=== PATIENT | female | born 1935 | race Caucasian/White ===

== ENCOUNTER 2020-04-05 14:42 | Inpatient (IN) | payer MEDICARE, MEDICAID ==
[~2020-04-05] VITALS: Ht 162.6 cm; Wt 65.8 kg
--- NOTE | ~2020-04-05 | PROC ---
[address] [address] PROCEDURE REPORT Name: ANNE MARIE PENDLETON Room: [address] IN .R.#: [id number] Admission: 04/05/20 Attend Phys: Guy Leone, Discharge: Date of : 31 Report #: [id number] THIS REPORT FOR: //name// cc: James Azevedo MD, Timothy J. MD ~ THIS REPORT FOR: //name// For GI report, please see the Provation report in Perceptive 7 content. By: [id number] Records Staff MERRITT /OSEAS
[~2020-04-05 14:42] MED LIST: ACETAMINOPHEN-1 EAC1 PO; ACIDOPHILUS1 EAC4 PO; ADULT LOW DOSE81 MG PO; AMOXICILLIN500 M1 PO; APAP500 PO; ARICEPT 5 MG TAB5 MG PO; AZITHROMYCIN 2250 MG PO; BENAZEPRIL HCL20 MG PO; BENTYL 20 MG TA20 M1 PO; CARAFATE 1 GM TA1 G1 PO; CATAPRES0.2 MG PO; CIPRO500 MG PO; CIPROFLOXACIN500 M3; CIPROFLOXACIN500 M3 PO; CITRATE OF MAG296 ML PO; CLOPIDOGREL75 MG PO; COLACE100 MG PO; DULCOLAX5 MG PO; DUONEB 2.5-0.5 M3 ML INH; FIBERCON625 M1 PO; FLEXERIL PO; GABAPENTIN 100100 MG PO; GLUCOPHAGE500 MG PO; HYDROCHLOROTH12.5 M1 PO; IBUPROFEN 800800 M1 PO; KEFLEX500 MG PO; LEVAQUIN 500 M500 MG PO; LEVEMIR SQ; LEVEMIR SUBQ; LIPITOR10 MG PO; LISINOPRIL10 MG PO; MIRALAX17 GM PO; MIRALAX255 GM PO; NAMENDA 5 MG TAB5 M1 PO; NEURONTIN 300300 M1 PO; NORCO 5-325 TA1 EACH PO; NOVOLOG100 UNIT/1 SUBQ; NYSTATIN 1100000 U/M SW&SWALLOW; OMEPRAZOLE 20 M20 M1; OMEPRAZOLE20 M2 PO; ONDANSETRON HCL4 M2 PO; PRILOSEC 20 MG20 MG PO; PRINIVIL40 MG PO; PROBIOTIC1 EAC1 PO; PROTONIX40 MG PO; RANITIDINE PO; REGLAN 5 MG TAB5 MG PO; SENOKOT-S1 TA1 PO; UNICOMPLEX M TA1 TA1 PO; VITAMIN B-12500 MCG PO; ZANTAC 150MG T150 M1; ZEGERID 20 MG1 EACH PO; ZOFRAN ODT4 MG PO; ZOFRAN4 MG PO; ZOLOFT25 MG PO; ZPAK PO; glucometer
[2020-04-05 14:45] VITALS: BP 132/57
[2020-04-05 15:09] LABS: ABSOLUTE BASOPHILS 0.1 thou/uL (0.0-0.2); ABSOLUTE EOSINOPHILS 0.3 thou/uL (0.0-0.7); ABSOLUTE LYMPHOCYTES 1.3 thou/uL (0.8-5.3); ABSOLUTE MONOCYTES 0.6 thou/uL (0.0-1.2); ABSOLUTE NEUTROPHILS 7.9 thou/uL (1.6-8.1); BASOPHILS 0.6 %; EOSINOPHILS 2.6 %; LYMPHOCYTES 12.7 %; MCH 23.3 pg (26.0-34.0); MCHC 32.4 g/dL (28.0-37.0); MCV 71.8 fL (80.0-100.0); MONOCYTES 5.6 %; MPV 8.6 fl. (7.2-11.1); NUCLEATED RBCS 0 /100WBC; PLATELET COUNT* 326 thou/uL (150-400); POLYS 78.5 %; RBC 4.32 mil/uL (4.20-5.00); RDW-CV 18.9 % (10.5-14.5)
[2020-04-05] MEDS ORDERED: OMEPRAZOLE40 MG PO (15:15)
[2020-04-05 15:16] LABS: CALCIUM 8.4 mg/dL (8.5-10.1); CREATININE 1.3 mg/dL (0.6-1.3); POTASSIUM 3.6 mmol/L (3.5-5.1)
[2020-04-05 15:19] LABS: APTT 18.8 Seconds (25.0-31.3); INR 1.1; PROTIME 10.8 Seconds (9.20-11.50)
[2020-04-05 15:29] LABS: ALBUMIN 3.1 g/dL (3.4-5.0); TOTAL BILIRUBIN 0.3 mg/dL (<0.1-1.0); TOTAL PROTEIN 6.9 g/dL (6.4-8.2)
[2020-04-05 15:40] LABS: URINE BILIRUBIN NEGATIVE (Negative); URINE BLOOD TRACE (Negative); URINE CLARITY SL CLOUDY; URINE COLOR YELLOW; URINE GLUCOSE-RANDOM NEGATIVE (Negative); URINE KETONES TRACE (Negative); URINE LEUKOCYTES-REFLEX NEGATIVE (Negative); URINE NITRITE-REFLEX NEGATIVE (Negative); URINE PROTEIN 1+ (Negative); URINE UROBILINOGEN 0.2 E.U./dl (0.2-1.0)
[2020-04-05 20:12] VITALS: BP 120/65
[2020-04-05 20:25] VITALS: BP 134/54
[2020-04-06] VITALS (9 sets, daily range): BP systolic 129–175; BP diastolic 50–93
[2020-04-06 02:21] LABS: HEMATOCRIT 29.1 % (37.0-47.0); HEMOGLOBIN 9.4 gm/dL (12.0-15.0); MCH 23.1 pg (26.0-34.0); MCHC 32.2 g/dL (28.0-37.0); MCV 71.9 fL (80.0-100.0); MPV 8.4 fl. (7.2-11.1); RBC 4.06 mil/uL (4.20-5.00); RDW-CV 18.7 % (10.5-14.5); WBC 12.4 thou/uL (4.0-11.0)
[2020-04-06 02:41] LABS: CALCIUM 8.5 mg/dL (8.5-10.1); CREATININE 1.3 mg/dL (0.6-1.3); MAGNESIUM 1.4 mg/dL (1.8-2.4); POTASSIUM 3.6 mmol/L (3.5-5.1)
[2020-04-06 02:43] LABS: TROPONIN-I LEVEL 4.38 ng/mL (<0.06)
[2020-04-06 07:55] LABS: CHOLESTEROL 143 mg/dL (<200); HDL CHOLESTEROL 43 mg/dL (>40); LDL CHOLESTEROL 65 mg/dL (<100); TC:HDL 3.3 Ratio (Not establshd); TRIGLYCERIDE 175 mg/dL (<150); VLDL 35 mg/dL (<40)
[2020-04-06 07:59] LABS: SERUM ASSESSMENT Clear
[2020-04-06 10:48] LABS: CALCIUM 8.4 mg/dL (8.5-10.1); CREATININE 1.4 mg/dL (0.6-1.3); POTASSIUM 3.4 mmol/L (3.5-5.1)
--- NOTE | 2020-04-06 16:29 | 2DMMODE ---
[place] [address] 2 D/M-MODE ECHOCARDIOGRAM Name: ANNE MARIE PENDLETON Room: [address] IN .R.#: [id number] Admission: 04/05/20 Attend Phys: Guy Adhikari Discharge: Date of : 31 Date of Service: 04/06/20 1628 Report #: [id number] THIS REPORT FOR: cc: James Azevedo MD, Timothy J. MD Holkins,Job Hernandez MD [facility] ~ APPROVED REPORT Study performed: 04/06/2020 14:39:05 EXAM: Comprehensive 2D, Doppler, and color-flow Echocardiogram Patient Location: Bedside BSA: 1.80 HR: 80 bpm BP: 129/68 mmHg Other Information Study Quality: Technically Limited Technically limited study due to uncooperative patient, inability to position patient. Indications Dyspnea 2D Dimensions IVSd: 18.76 (7-11mm) LVOT Diam: 17.15 (18-24mm) LVDd: 50.37 mm PWd: 13.23 (7-11mm) Ascending Ao: 33.71 (22-36mm) LVDs: 39.72 (25-40mm) Aortic Root: 38.89 mm Volumes Left Atrial Volume (Systole) LA ESV Index: 47.70 mL/m2 Aortic Valve AoV Peak Luis Miguel.: 1.29 m/s AO Peak Gr.: 6.67 mmHg LVOT Max P.52 mmHg AO Mean Gr.: 3.74 mmHg LVOT Mean P.91 mmHg LVOT Max V: 0.62 m/s AO V2 VTI: 27.19 cm LVOT Mean V: 0.45 m/s PRECIOUS (VTI): 1.33 cm2 LVOT V1 VTI: 15.70 [place] [address] 2 D/M-MODE ECHOCARDIOGRAM Name: ANNE MARIE PENDLETON Room: [address] IN [facility]#: [id number] Admission: 04/05/20 Attend Phys: Guy Adhikari Discharge: Date of : 31 Date of Service: 04/06/20 1628 Report #: [id number] Mitral Valve E/A Ratio: 0.84 MV Decel. Time: 165.76 ms MV E Max Luis Miguel.: 0.86 m/s MV PHT: 48.07 ms MVA (PHT): 4.58 cm2 TDI E/Lateral E': 17.20 E/Medial E': 21.50 Medial E' Luis Miguel.: 0.04 m/s Lateral E' Luis Miguel.: 0.05 m/s Pulmonary Valve PV Peak Luis Miguel.: 0.86 m/s PV Peak Gr.: 2.93 mmHg Tricuspid Valve RAP Estimate: 5.00 mmHg TR Peak Gr.: 47.74 mmHg RVSP: 52.74 mmHg PA Pressure: 52.74 mmHg Left Ventricle The left ventricle is normal size. There is distal septal and apical hypokinesis noted Mild concentric left ventricular hypertrophy. Left ventricular systolic function is mildly decreased. LVEF is 45%. Grade I - abnormal relaxation pattern. Right Ventricle The right ventricle is normal size. The right ventricular systolic function is normal. Atria Left atrium is moderately dilated. Interatrial septum not well visualized. Right atrium is dilated. Aortic Valve The Aortic valve is sclerotic. Mild aortic regurgitation. There is no aortic valvular stenosis. Mitral Valve There is mitral annular calcification. Trace mitral regurgitation. No evidence of mitral valve stenosis. Tricuspid Valve The tricuspid valve is normal in structure. Mild tricuspid regurgitation. [place] [address] 2 D/M-MODE ECHOCARDIOGRAM Name: ANNE MARIE PENDLETON Room: [address]#: [id number] Admission: 04/05/20 Attend Phys: Guy Adhikari Discharge: Date of : 31 Date of Service: 04/06/20 1628 Report #: [id number] Pulmonic Valve The pulmonary valve is normal in structure. Moderate pulmonic regurgitation. Great Vessels The aortic root is normal in size. Aortic arch is not well visualized. IVC is not well visualized. Pericardium Trace pericardial effusion. <Conclusion> The left ventricle is normal size. Mild concentric left ventricular hypertrophy. Left ventricular systolic function is mildly decreased. LVEF is 45%. Grade I - abnormal relaxation pattern. The right ventricle is normal size. Left atrium is moderately dilated. The Aortic valve is sclerotic. Mild aortic regurgitation. There is no aortic valvular stenosis. There is mitral annular calcification. Trace mitral regurgitation. No evidence of mitral valve stenosis. The tricuspid valve is normal in structure. Mild tricuspid regurgitation. Moderate pulmonary hypertension. Trace pericardial effusion. There is distal septal and apical hypokinesis noted <ELECTRONICALLY SIGNED> By: Job Elliott MD, FACC 04/06/20 1628 1628 Job Elliott MD, FACC /INF
--- NOTE | 2020-04-06 17:07 | EKG ---
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 04/06/20 1707 1452 1452 Job Elliott MD, [facility] /EPI
[2020-04-07 00:43] VITALS: BP 174/69
[2020-04-07 04:32] VITALS: BP 172/77
[2020-04-07 04:56] LABS: HEMATOCRIT 31.5 % (37.0-47.0); HEMOGLOBIN 10.1 gm/dL (12.0-15.0); MCH 23.2 pg (26.0-34.0); MCHC 32.2 g/dL (28.0-37.0); MCV 72.1 fL (80.0-100.0); MPV 9.2 fl. (7.2-11.1); RBC 4.37 mil/uL (4.20-5.00); RDW-CV 18.7 % (10.5-14.5); WBC 13.3 thou/uL (4.0-11.0)
[2020-04-07 05:17] LABS: CALCIUM 8.7 mg/dL (8.5-10.1); CREATININE 1.4 mg/dL (0.6-1.3); MAGNESIUM 1.6 mg/dL (1.8-2.4); POTASSIUM 3.4 mmol/L (3.5-5.1)
[2020-04-07 12:00] VITALS: BP 159/74
[2020-04-07 14:13] LABS: CALCIUM 8.8 mg/dL (8.5-10.1); CREATININE 1.6 mg/dL (0.6-1.3)
[2020-04-07 14:14] LABS: POTASSIUM 4.7 mmol/L (3.5-5.1)
--- NOTE | 2020-04-07 14:47 | CON ---
[address] [address] CONSULTATION Name: ANNE MARIE PENDLETON Room: [address] IN .R.#: [id number] Admission: 04/05/20 Attend Phys: Guy Leone, Discharge: Date of : 31 Report #: [id number] THIS REPORT FOR: //name// cc: James Azevedo MD, Timothy J. MD ~ THIS REPORT FOR: //name// CC: Guy Azevedo DATE OF SERVICE: 04/07/2020 REQUESTING PHYSICIAN: Guy Leone MD INDICATION FOR CONSULTATION: Pulmonary infiltrates, possible pneumonia. HISTORY OF PRESENT ILLNESS: The patient is an 84-year-old female. She only speaks Belgian, which limits communication. The patient also has had altered mental status and appears likely that she has dementia. All of this limits communication. Apparently, the patient is now admitted initially on 04/05/2020. She does not have any known history of smoking. The patient has had hypertension, but does not have any other history of cardiac or respiratory disease. Presentation was with altered mental status. The patient also was having abdominal pain and had had vomiting as well as diarrhea. According to her family, has had some coughing at her baseline. There is no reported increase in this coughing. There is no reported increase in shortness of breath. No reported increase or new upper respiratory complaints, no swelling of lower extremities and no calf pain. The patient was evaluated by obtaining troponin I levels. Troponin I initially was 1.0 and subsequently climbed up to 4.34, consistent with a non-ST segment myocardial infarction. The patient also had an echocardiogram performed, which shows a depression in left ventricular ejection fraction to 45, which is new, and is discussed below in more detail. The patient's initial chest x-ray shows some increase in reticular markings, which will be consistent with either mild increase in pulmonary vascular congestion or interstitial infiltrates. The patient in the setting of a myocardial infarction was suspected of having fluid overload and that she has been diuresed since then. Her initial creatinine was 1.3, which has now increased to 1.4. The patient's baseline creatinine from 2017 is 1.0. Despite diuresis, the patient's chest x-ray now in fact looks worse. The patient still remains on room air. She is lethargic, drowsy, but I was able to fully arouse her and speak to her through a family member who acted as a pastry finisher. She has also been concern regarding aspiration. The patient's nurse does report that she has had difficulty swallowing and has been having cough with taking liquids. The patient still is maintaining [place] [address] CONSULTATION Name: ANNE MARIE EPNDLETON Room: [address] IN ..#: [id number] Admission: 04/05/20 Attend Phys: Guy Leone, Discharge: Date of : 33 Report #: [id number] the mid 90s on room air and she is afebrile. The patient is unable to provide a further history or review of systems. PAST MEDICAL HISTORY: Diabetes, hypertension, gastroesophageal reflux disease, meningioma, UTI, orthostatic hypotension, Alzheimer disease, diverticulosis, insomnia. The patient's echocardiogram previously in 2017 showed a normal left ventricular ejection fraction of 55-60% with a pulmonary artery systolic of 41. The patient has now had a new echocardiogram performed, which shows a reduction in the ventricular ejection fraction to 45%. The pulmonary artery systolic pressure is now also elevated to 52. SOCIAL HISTORY: No known history of smoking, ethanol abuse or drug abuse. The patient only speaks Belgian. ALLERGIES: No known drug allergies. CURRENT MEDICATIONS: List in Get[employer] reviewed. HOME MEDICATIONS: List in [employer] reviewed. FAMILY HISTORY: There is no pertinent family history known at this time. PHYSICAL EXAMINATION: GENERAL: The patient was drowsy, but I was able to fully arouse her. She still did appear to be somewhat lethargic. I was able to communicate with her through a family member. VITAL SIGNS: She has a pulse of 80 and a blood pressure of 159/74, she still is saturating in the mid 90s, she is on room air, she is afebrile with a temperature of 36.4. HEENT: Head is normocephalic and atraumatic. Pupils are equal and reactive. There is no throat erythema. There is no thrush in her throat. Her airway does appear to be narrow. NECK: Does not show raised JVP, asymmetry, mass or lymph nodes. CHEST: Symmetrical expansion on inspection and palpation. On auscultation, breath sounds are bilaterally equal, but decreased. I do not hear any added sounds. HEART: Regular. There is no murmur. ABDOMEN: Soft and nontender. EXTREMITIES: Lower extremities show no edema. There is no calf tenderness. SKIN: Dry and intact. NEUROLOGICAL: Mental status as described above. She did move all extremities bilaterally equally and spontaneously with no focal deficit identified. LABORATORY DATA: The patient's chest x-rays are as described above. CT of the abdomen and pelvis and CT head as well as x-ray abdomen also reviewed. Lab work including CBC and chemistries performed several times in [facility] reviewed. [address] [place] [address] CONSULTATION Name: ANNE MARIE PENDLETON Room: [address] IN M.R.#: [id number] Admission: 04/05/20 Attend Phys: Guy Leone, Discharge: Date of : 33 Report #: [id number] Electrolyte abnormalities are also noted. Hyperglycemia is noted. ASSESSMENT AND PLAN: 1. Interstitial infiltrates/aspiration. The patient's chest x-ray is reviewed and compared with the patient's previous chest x-ray performed on admission, despite the fact that the patient has been diuresed. There is a worsening in the chest x-ray. Findings seen on the chest x-ray can be secondary to increase in pulmonary vascular congestion. They could also be secondary to atypical or viral pneumonia. It appears likely based on the patient's previous chest x-ray that she may have some interstitial lung disease as well. At this time, I recommended that the patient be made n.p.o. pending evaluation by speech. If allowed orally by speech, I recommend maintaining strict aspiration precautions. Amongst several other etiologies, COVID-19 can also lead to this picture and therefore, I did order further testing for COVID-19. I requested the patient to be in isolation until the same is completed. Also pending further evaluation, I would treat her with broad-spectrum antibiotics. If she improves, we will plan to cut down the antibiotics later. I switched her over to Zosyn + Doxycyline. We will also treat her with a corticosteroid and follow response. 2. Non-ST segment myocardial infarction. The Cardiology service is on the case. I will mostly defer to them. Agree with keeping the patient on the dry side as long as her creatinine holds, we will need to follow creatinine closely. I recommend following potassium and magnesium closely and replacing as indicated. 3. Hyperglycemia/history of diabetes. I ordered an insulin sliding scale as I am ordering some steroids to avoid a further rise in blood glucoses, will defer followup to the primary service. 4. Gastroesophageal reflux disease/nausea and vomiting. The GI service has been consulted. The patient is on a proton pump inhibitor. 5. History of meningioma. The Neurology service is also on the case. Thanks for this consultation. <ELECTRONICALLY SIGNED> By: Souleymane Valentino MD 04/07/20 1447 1329 [id number] Valentino MD /nt
[2020-04-07 16:00] VITALS: BP 104/71
[2020-04-07 21:00] VITALS: BP 120/90
[2020-04-07 23:08] VITALS: BP 130/84
[2020-04-08 03:45] VITALS: BP 136/67
[2020-04-08 04:58] LABS: HEMATOCRIT 31.2 % (37.0-47.0); HEMOGLOBIN 9.9 gm/dL (12.0-15.0); MCHC 31.9 g/dL (28.0-37.0); MCV 72.1 fL (80.0-100.0); MPV 8.7 fl. (7.2-11.1); NUCLEATED RBCS 0 /100WBC; PLATELET COUNT* 431 thou/uL (150-400); RBC 4.33 mil/uL (4.20-5.00); RDW-CV 19.5 % (10.5-14.5); WBC 19.9 thou/uL (4.0-11.0)
[2020-04-08 05:13] LABS: ALBUMIN 3.2 g/dL (3.4-5.0); CALCIUM 9.1 mg/dL (8.5-10.1); CREATININE 1.8 mg/dL (0.6-1.3); MAGNESIUM 2.3 mg/dL (1.8-2.4); POTASSIUM 4.9 mmol/L (3.5-5.1); TOTAL BILIRUBIN 0.5 mg/dL (<0.1-1.0); TOTAL PROTEIN 7.3 g/dL (6.4-8.2)
[2020-04-08 06:47] LABS: ABSOLUTE LYMPHOCYTES 1.2 thou/uL (0.8-5.3); ABSOLUTE MONOCYTES 1.8 thou/uL (0.0-1.2); ABSOLUTE NEUTROPHILS 16.9 thou/uL (1.6-8.1)
[2020-04-08 06:48] LABS: HYPOCHROMASIA 1+; PLATELET ESTIMATE ADEQUATE
[2020-04-08 06:49] LABS: MICROCYTES 1+; TOXIC GRANULATION 2+
[2020-04-08 06:50] LABS: OVALOCYTES 1+
[2020-04-08 08:00] VITALS: BP 157/83
[2020-04-08 12:00] VITALS: BP 100/56
[2020-04-08 16:00] VITALS: BP 168/89
[2020-04-08 20:00] VITALS: BP 167/79
[2020-04-08 23:40] VITALS: BP 145/67
[2020-04-09 04:00] VITALS: BP 151/68
[2020-04-09 05:12] LABS: ABSOLUTE LYMPHOCYTES 1.2 thou/uL (0.8-5.3); ABSOLUTE MONOCYTES 1.4 thou/uL (0.0-1.2); ABSOLUTE NEUTROPHILS 13.1 thou/uL (1.6-8.1); BASOPHILS 0.3 %; HEMOGLOBIN 8.9 gm/dL (12.0-15.0); LYMPHOCYTES 7.5 %; MCH 23.1 pg (26.0-34.0); MCHC 31.9 g/dL (28.0-37.0); MCV 72.3 fL (80.0-100.0); MPV 9.2 fl. (7.2-11.1); NUCLEATED RBCS 1 /100WBC; PLATELET COUNT* 370 thou/uL (150-400); POLYS 83.2 %; RBC 3.87 mil/uL (4.20-5.00); RDW-CV 19.8 % (10.5-14.5); WBC 15.7 thou/uL (4.0-11.0)
[2020-04-09 05:43] LABS: ALBUMIN 2.8 g/dL (3.4-5.0); CALCIUM 8.7 mg/dL (8.5-10.1); CREATININE 2.2 mg/dL (0.6-1.3); MAGNESIUM 2.2 mg/dL (1.8-2.4); POTASSIUM 4.6 mmol/L (3.5-5.1); TOTAL BILIRUBIN 0.6 mg/dL (<0.1-1.0); TOTAL PROTEIN 6.6 g/dL (6.4-8.2)
[2020-04-09 08:00] VITALS: BP 144/66
[2020-04-09 12:00] VITALS: BP 154/70
[2020-04-09 16:00] VITALS: BP 152/78
[2020-04-09 20:00] VITALS: BP 137/66
[2020-04-10] VITALS: BP 142/83
[2020-04-10 04:00] VITALS: BP 144/59
[2020-04-10 04:57] LABS: ABSOLUTE LYMPHOCYTES 1.4 thou/uL (0.8-5.3); ABSOLUTE MONOCYTES 1.2 thou/uL (0.0-1.2); ABSOLUTE NEUTROPHILS 8.5 thou/uL (1.6-8.1); BASOPHILS 0.1 %; HEMATOCRIT 25.7 % (37.0-47.0); HEMOGLOBIN 8.3 gm/dL (12.0-15.0); LYMPHOCYTES 12.7 %; MCH 23.5 pg (26.0-34.0); MCHC 32.5 g/dL (28.0-37.0); MCV 72.3 fL (80.0-100.0); MONOCYTES 10.7 %; MPV 9.1 fl. (7.2-11.1); NUCLEATED RBCS 1 /100WBC; PLATELET COUNT* 330 thou/uL (150-400); POLYS 76.5 %; RBC 3.55 mil/uL (4.20-5.00); RDW-CV 19.8 % (10.5-14.5); WBC 11.1 thou/uL (4.0-11.0)
[2020-04-10 05:11] LABS: PREALBUMIN 13.3 mg/dL (18.0-35.7)
[2020-04-10 05:16] LABS: ALBUMIN 2.7 g/dL (3.4-5.0); CALCIUM 8.2 mg/dL (8.5-10.1); CREATININE 2.1 mg/dL (0.6-1.3); POTASSIUM 4.1 mmol/L (3.5-5.1); TOTAL BILIRUBIN 0.6 mg/dL (<0.1-1.0); TOTAL PROTEIN 6.2 g/dL (6.4-8.2)
[2020-04-10 05:41] LABS: % SATURATION 6 % (20-39); IRON 16 ug/dL (50-175)
[2020-04-10 06:35] LABS: ESR (SEDRATE) 25 mm/hr (0-30)
[2020-04-10 08:00] VITALS: BP 151/72
[2020-04-10 12:00] VITALS: BP 163/68
[2020-04-10 16:00] VITALS: BP 126/66
[2020-04-10 20:20] VITALS: BP 151/71
[2020-04-11] VITALS: BP 137/90
[2020-04-11 04:00] VITALS: BP 143/57
[2020-04-11 05:12] LABS: ABSOLUTE LYMPHOCYTES 1.7 thou/uL (0.8-5.3); ABSOLUTE MONOCYTES 1.2 thou/uL (0.0-1.2); ABSOLUTE NEUTROPHILS 9.1 thou/uL (1.6-8.1); BASOPHILS 0.3 %; EOSINOPHILS 0.1 %; HEMATOCRIT 26.4 % (37.0-47.0); HEMOGLOBIN 8.6 gm/dL (12.0-15.0); LYMPHOCYTES 14.3 %; MCH 23.4 pg (26.0-34.0); MCHC 32.4 g/dL (28.0-37.0); MCV 72.3 fL (80.0-100.0); MONOCYTES 9.7 %; NUCLEATED RBCS 1 /100WBC; PLATELET COUNT* 330 thou/uL (150-400); POLYS 75.6 %; RBC 3.66 mil/uL (4.20-5.00); WBC 12.1 thou/uL (4.0-11.0)
[2020-04-11 05:23] LABS: CALCIUM 8.2 mg/dL (8.5-10.1); CREATININE 1.8 mg/dL (0.6-1.3); POTASSIUM 3.8 mmol/L (3.5-5.1)
[2020-04-11 09:00] VITALS: BP 156/69
[2020-04-11 12:37] VITALS: BP 149/59
[2020-04-11 16:58] VITALS: BP 174/91
[2020-04-11 20:00] VITALS: BP 165/80
[2020-04-12] VITALS (7 sets, daily range): BP systolic 126–173; BP diastolic 66–102
[2020-04-12 05:49] LABS: ABSOLUTE LYMPHOCYTES 1.4 thou/uL (0.8-5.3); ABSOLUTE NEUTROPHILS 10.4 thou/uL (1.6-8.1); BASOPHILS 0.2 %; HEMATOCRIT 25.4 % (37.0-47.0); HEMOGLOBIN 8.4 gm/dL (12.0-15.0); MCH 23.9 pg (26.0-34.0); MCV 72.4 fL (80.0-100.0); MONOCYTES 7.7 %; MPV 8.6 fl. (7.2-11.1); NUCLEATED RBCS 1 /100WBC; PLATELET COUNT* 317 thou/uL (150-400); POLYS 81.1 %; RBC 3.51 mil/uL (4.20-5.00); RDW-CV 20.1 % (10.5-14.5); WBC 12.8 thou/uL (4.0-11.0)
[2020-04-12 06:04] LABS: ALBUMIN 2.5 g/dL (3.4-5.0); CALCIUM 8.1 mg/dL (8.5-10.1); CREATININE 1.5 mg/dL (0.6-1.3); MAGNESIUM 1.8 mg/dL (1.8-2.4); POTASSIUM 3.6 mmol/L (3.5-5.1); TOTAL BILIRUBIN 0.8 mg/dL (<0.1-1.0); TOTAL PROTEIN 5.9 g/dL (6.4-8.2)
[2020-04-12 08:23] LABS: ANISOCYTOSIS 2+
[2020-04-12 08:24] LABS: HYPOCHROMASIA 1+; MICROCYTES 1+
[2020-04-12 08:43] LABS: PLATELET ESTIMATE ADEQUATE
[2020-04-12 11:39] LABS: INR 1.3; PROTIME 13.1 Seconds (9.20-11.50)
[2020-04-12 16:07] LABS: CALCIUM 8.3 mg/dL (8.5-10.1); CREATININE 1.6 mg/dL (0.6-1.3); POTASSIUM 3.9 mmol/L (3.5-5.1)
[2020-04-13 00:48] VITALS: BP 158/65
[2020-04-13 04:00] VITALS: BP 168/75
[2020-04-13 05:04] LABS: ABSOLUTE MONOCYTES 1.4 thou/uL (0.0-1.2); ABSOLUTE NEUTROPHILS 12.9 thou/uL (1.6-8.1); BASOPHILS 0.3 %; HEMATOCRIT 25.6 % (37.0-47.0); HEMOGLOBIN 8.3 gm/dL (12.0-15.0); LYMPHOCYTES 12.1 %; MCH 23.2 pg (26.0-34.0); MCHC 32.6 g/dL (28.0-37.0); MCV 71.2 fL (80.0-100.0); MONOCYTES 8.5 %; MPV 9.2 fl. (7.2-11.1); NUCLEATED RBCS 1 /100WBC; PLATELET COUNT* 324 thou/uL (150-400); POLYS 79.1 %; RDW-CV 19.5 % (10.5-14.5); WBC 16.3 thou/uL (4.0-11.0)
[2020-04-13 05:09] LABS: CALCIUM 7.9 mg/dL (8.5-10.1); CREATININE 1.5 mg/dL (0.6-1.3); POTASSIUM 3.5 mmol/L (3.5-5.1)
[2020-04-13 08:00] VITALS: BP 163/71
--- NOTE | 2020-04-13 09:54 | CON ---
[address] [address] CONSULTATION Name: ANNE MARIE PENDLETON Room: [address] IN [facility].#: [id number] Admission: 04/05/20 Attend Phys: Guy Leone, Discharge: Date of : 33 Report #: [id number] THIS REPORT FOR: //name// cc: James Azevedo MD, Timothy J. MD ~ THIS REPORT FOR: //name// CC: Guy Azevedo DATE OF SERVICE: 04/09/2020 NEPHROLOGY CONSULTATION CONSULTING PHYSICIAN: Gyu Leone MD REASON FOR ADMISSION: Altered mental status and diarrhea and vomiting for 1 day. REASON FOR NEPHROLOGY CONSULTATION: Acute kidney injury on possibly chronic kidney disease. HISTORY OF PRESENT ILLNESS: This is an 84-year-old female who was brought in because of altered mental status. She apparently does have a history of dementia. She also had nausea and vomiting for 1 day prior to coming to the hospital along with possibly some diarrhea. When she was initially admitted, she was treated for chest x-ray findings of ground-glass opacities bilaterally with Lasix. Her lisinopril was also discontinued. It was stopped on 04/07. She normally takes lisinopril, hydrochlorothiazide at home and I am not sure if she takes any NSAIDs at home. She also was found to have a meningioma on her CT head. Neurology evaluated her for that. Her ejection fraction was found to be 45% with grade 1 diastolic dysfunction with moderate pulmonary hypertension. Cardiology also evaluated her for this and for possible non-STEMI, which they called a type 2 non-STEMI, but the troponin went up from 1.01 to 4.38, but they recommended only medical intervention. This is why Nephrology was consulted, was because her creatinine was 1.3 when she admitted on 04/05, went up to 1.4, 1.6 and then 1.8 and 2.2 today. I started her on IV fluids yesterday because she was not getting any and she has not been eating and drinking. She was not very talkative this morning. She is also getting antibiotics for possible pneumonia on the left side. She also has a Aguero catheter because she was retaining 400 mL of urine yesterday on her bladder scan. ALLERGIES: No known allergies. REVIEW OF SYSTEMS: As mentioned [place] [address] CONSULTATION Name: ANNE MARIE PENDLETON Room: [address] IN [facility]#: [id number] Admission: 04/05/20 Attend Phys: Guy Leone, Discharge: Date of : 33 Report #: [id number] REVIEW OF SYSTEMS: Could not be done because she was not very verbal this morning. HOME MEDICATIONS: Include Plavix, hydrochlorothiazide, clonidine, lisinopril, gabapentin, cyanocobalamin, atorvastatin, multivitamins, memantine, omeprazole, metformin, sertraline, docusate, polyethylene glycol, acetaminophen, insulin detemir, calcium polycarbophil. PAST MEDICAL AND SURGICAL HISTORY: Includes hypertension, diabetes, sinusitis, meningioma, GERD, UTI. Also, has hypertension, Alzheimer's, diverticulosis, insomnia. Also, looks like chronic kidney disease, stage 3 with baseline creatinine possibly around 1.3. SOCIAL HISTORY: She lives at home. Does not smoke or take alcohol or use illicit drugs. PHYSICAL EXAMINATION: VITAL SIGNS: Blood pressure is 151/68, respiratory rate is 18, pulse rate is 82, temperature 36.7 and pulse ox 98%. She is on room air. GENERAL: She was awake and alert, not verbal to me at least. HEAD AND EYES: Atraumatic and normocephalic. Conjunctivae normal. EARS, NOSE, AND THROAT: Normal ears and nose. Mucous membranes seem to be dry. NECK: No JVD. CHEST: Bilaterally clear to auscultation anteriorly. No crackles. CARDIOVASCULAR: S1, S2 normal. No murmurs. ABDOMEN: Soft, nondistended, nontender. EXTREMITIES: Lower extremities, there is no lower extremity edema. SKIN: Warm and dry. NEUROLOGIC: She is moving all her extremities. PSYCHIATRIC: Difficult to assess. LABORATORY DATA: WBC 15.7, hemoglobin is 8.9, platelet count is 370. Sodium is 147; potassium is 4.6; BUN 45; creatinine is 2.2, up from 1.8. Troponin was 4.38, up from 1.01. Other labs were reviewed. IMAGING: Renal ultrasound and other imaging studies were reviewed. ASSESSMENT: 1. Acute kidney injury on chronic kidney disease, stage 3B with baseline creatinine around 1.3. Admission creatinine 1.3, but creatinine has gone up to 2.2. Acute kidney injury is in the setting of lisinopril and Lasix use and intravascular volume depletion, mild hypotension and retention of urine. Her UA just showed 1+ protein, trace ketones and blood. Renal ultrasound showed mildly high normal renal echogenicity and left renal cyst, but no hydronephrosis. 2. Retention of urine. Aguero catheter has been placed. 3. Acute respiratory failure. Aspiration cannot be ruled out and she has [address] [place] [place] [address] CONSULTATION Name: ANNE MARIE PENDLETON Room: [address] IN [facility].#: [id number] Admission: 04/05/20 Attend Phys: Guy Leone, Discharge: Date of : 33 Report #: [id number] pneumonia on the left side, which has been treated for as per primary team. 4. Hypertension. Blood pressure has been running marginally low at times. 5. Normal CPK of 61. 6. Type 2 gwt-EA-zgfjoayef myocardial infarction. Cardiology signed off on her. They believe this should be just treated medically. 7. Alzheimer dementia. 8. Chronic systolic congestive heart failure, ejection fraction 45% with grade 1 diastolic dysfunction, moderate pulmonary hypertension. 9. Anemia. 10. Diabetes type 2, diabetic neuropathy. Primary team is treating. 11. Depression. PLAN: 1. Aguero catheter has been placed for retention of urine. 2. Continue IV fluid support, will increase to half normal saline to 100 mL an hour. 3. Zosyn adjusted to her kidney function. 4. Morphine should be avoided, especially if her kidney function keeps declining. 5. CT finding of meningioma reviewed. Neurology evaluated her for that. 6. Try to avoid hypotension and avoid nephrotoxic agents. 7. Continue to keep lisinopril/hydrochlorothiazide on hold. 3. Strict I's and O's. Thank you for this consultation. We will continue to follow with you. Discussed with the patient's nurse in detail. <ELECTRONICALLY SIGNED> By: Millicent Bell MD 04/13/20 0954 0749 [id number] pedro Fernández
[2020-04-13 17:07] LABS: ANA INTERPRETATION Negative (())
[2020-04-13 19:24] VITALS: BP 181/80
[2020-04-13 20:00] VITALS: BP 143/83
[2020-04-14 00:49] VITALS: BP 162/66
[2020-04-14 04:10] VITALS: BP 165/64
[2020-04-14 05:07] LABS: GLYCOHEMOGLOBIN (HGB A1C) 6.9 % (4.8-5.6)
[2020-04-14 06:04] LABS: HEMOGLOBIN 8.5 gm/dL (12.0-15.0); WBC 16.4 thou/uL (4.0-11.0)
[2020-04-14 06:07] LABS: ABSOLUTE LYMPHOCYTES 1.7 thou/uL (0.8-5.3); ABSOLUTE MONOCYTES 1.4 thou/uL (0.0-1.2); ABSOLUTE NEUTROPHILS 13.3 thou/uL (1.6-8.1); BASOPHILS 0.1 %; EOSINOPHILS 0.1 %; HEMATOCRIT 26.1 % (37.0-47.0); LYMPHOCYTES 10.2 %; MCH 23.3 pg (26.0-34.0); MCHC 32.4 g/dL (28.0-37.0); MCV 71.7 fL (80.0-100.0); MONOCYTES 8.4 %; NUCLEATED RBCS 1 /100WBC; PLATELET COUNT* 290 thou/uL (150-400); POLYS 81.2 %; RBC 3.64 mil/uL (4.20-5.00); RDW-CV 20.1 % (10.5-14.5)
[2020-04-14 06:33] LABS: ALBUMIN 2.1 g/dL (3.4-5.0); CREATININE 1.4 mg/dL (0.6-1.3); MAGNESIUM 1.7 mg/dL (1.8-2.4); POTASSIUM 3.3 mmol/L (3.5-5.1); TOTAL BILIRUBIN 0.8 mg/dL (<0.1-1.0); TOTAL PROTEIN 5.1 g/dL (6.4-8.2)
[2020-04-14 08:00] VITALS: BP 162/62
[2020-04-14 12:24] LABS: CALCIUM 8.2 mg/dL (8.5-10.1); CREATININE 1.3 mg/dL (0.6-1.3)
[2020-04-14 12:26] LABS: POTASSIUM 2.9 mmol/L (3.5-5.1)
[2020-04-14 18:00] VITALS: BP 182/68
[2020-04-14 20:00] VITALS: BP 176/87
[2020-04-14 21:23] LABS: MAGNESIUM 2.1 mg/dL (1.8-2.4); POTASSIUM 3.7 mmol/L (3.5-5.1)
[2020-04-15] VITALS: BP 160/56
[2020-04-15 04:00] VITALS: BP 168/69
[2020-04-15 05:21] LABS: HEMATOCRIT 25.9 % (37.0-47.0); HEMOGLOBIN 8.4 gm/dL (12.0-15.0); MCH 23.4 pg (26.0-34.0); MCHC 32.5 g/dL (28.0-37.0); MCV 71.8 fL (80.0-100.0); MPV 8.9 fl. (7.2-11.1); NUCLEATED RBCS 1 /100WBC; PLATELET COUNT* 233 thou/uL (150-400); RBC 3.61 mil/uL (4.20-5.00); RDW-CV 20.4 % (10.5-14.5); WBC 13.6 thou/uL (4.0-11.0)
[2020-04-15 05:46] LABS: CALCIUM 8.2 mg/dL (8.5-10.1); CREATININE 1.2 mg/dL (0.6-1.3); POTASSIUM 3.3 mmol/L (3.5-5.1); TOTAL BILIRUBIN 0.7 mg/dL (<0.1-1.0); TOTAL PROTEIN 5.3 g/dL (6.4-8.2)
[2020-04-15 06:34] LABS: ABSOLUTE EOSINOPHILS 0.3 thou/uL (0.0-0.7); ABSOLUTE LYMPHOCYTES 2.3 thou/uL (0.8-5.3); ABSOLUTE MONOCYTES 1.4 thou/uL (0.0-1.2); ABSOLUTE NEUTROPHILS 9.7 thou/uL (1.6-8.1)
[2020-04-15 06:36] LABS: MICROCYTES 3+; OVALOCYTES 2+; PLATELET ESTIMATE ADEQUATE; SCHISTOCYTES 1+
[2020-04-15 06:37] LABS: HYPOCHROMASIA 2+; POLYCHROMASIA 1+
--- NOTE | 2020-04-15 07:38 | CON ---
[address] [address] CONSULTATION Name: ANNE MARIE PENDLETON Room: [address] IN .R.#: [id number] Admission: 04/05/20 Attend Phys: Guy Leone, Discharge: Date of : 31 Report #: [id number] THIS REPORT FOR: //name// cc: James Azevedo MD, Timothy J. MD ~ THIS REPORT FOR: //name// CC: Guy Azevedo MD DICTATED BY: Kylie Hernandez [facility] DATE OF SERVICE: 04/11/2020 PRIMARY CARE PHYSICIAN: James Azevedo MD Please note at the time of this dictation, the patient was seen and physically examined by myself. HISTORY OF PRESENT ILLNESS: This is an 84-year-old female who was brought into the Emergency Room with altered mental status by her daughter whom she lives with family. She states her mother has been mentally declining over the past several years and remembering things. She brought her in because she was having some abdominal pain and having some nausea and vomiting. She states that the vomiting was more just regular vomit, but no bright red blood or coffee-ground emesis. Initially, when she was brought up, she did not have any cardiac history. She had an elevated troponin. Daughter states that she has not had any heart history in the past except that she has had an enlarged heart. She is doing relatively well. She does have a little bit of epigastric discomfort upon palpation at the bedside. Again, the patient speaks no Kyrgyz and having to go through her grandson and her mother was at the bedside and does not speak very good Kyrgyz either. ALLERGIES: No known drug allergies. MEDICATIONS: From home have been Plavix, hydrochlorothiazide, clonidine, lisinopril, Neurontin, vitamin B12. PAST MEDICAL HISTORY: Hypertension, diabetes, meningioma, acid reflux, UTI. She has had problems with orthostatic hypotension, diverticulosis, insomnia and Alzheimer's. PAST SURGICAL HISTORY: Negative. SOCIAL HISTORY: Lives with her daughter, does [place] [address] CONSULTATION Name: ANNE MARIE PENDLETON Room: [address] IN [facility]#: [id number] Admission: 04/05/20 Attend Phys: Guy Leone, Discharge: Date of : 33 Report #: [id number] any alcohol, tobacco or illegal drug use. FAMILY HISTORY: Negative for any GI or female cancers. REVIEW OF SYSTEMS: Twelve-point review of systems is essentially negative except what is mentioned in the HPI. PHYSICAL EXAMINATION: VITAL SIGNS: Temperature 36.4, pulse 71, respirations 22, blood pressure 143/97. HEART: Regular rate and rhythm. LUNGS: Clear. ABDOMEN: Soft, positive bowel sounds in all 4 quadrants with some epigastric tenderness noted to palpation. LABORATORY DATA: Hemoglobin is 8.6, she came in at 10. White count is up at 12.1. Platelets 330,000. GFR is 27. BUN is 48, it has been elevating. CT showed hiatal hernia and diverticula, otherwise negative. IMPRESSION: 1. Nausea and vomiting, resolved. 2. Abdominal pain, epigastric. 3. Anemia. 4. Chronic kidney disease. 5. Anticoagulant therapy history. 6. Heart issues. 7. Dementia. 8. Language barrier, significant with the patient. PLAN: 1. EGD tomorrow. 2. We will need to hold Plavix, aspirin and heparin, but we will check with Cardiology for clearance. 3. Further recommendations to be made once the procedure has been performed. Thank you for allowing us to participate in this patient's care. Please do not hesitate to call with any questions in regard to this consult. <ELECTRONICALLY SIGNED> By: Kayode Yates DO 04/15/20 0738 [id number] Yates DO /nt
[2020-04-15 08:00] VITALS: BP 175/76
[2020-04-15 13:21] VITALS: BP 141/69
[2020-04-15 13:52] VITALS: BP 141/69
[2020-04-15 14:07] LABS: ANTI-DNA SCREEN <1 IU/mL (0-9); ANTI-RNP <0.2 AI (0.0-0.9)
[2020-04-15 14:18] LABS: CALCIUM 8.6 mg/dL (8.5-10.1); CREATININE 1.2 mg/dL (0.6-1.3); POTASSIUM 3.1 mmol/L (3.5-5.1)
[2020-04-15 21:00] VITALS: BP 125/65
[2020-04-16 08:00] VITALS: BP 168/58
[2020-04-16] MEDS ORDERED: HYDROCODON-ACE1 EAC7 PO (08:44)
[2020-04-16] MEDS ORDERED: LIDOPATCH1 EACH TOP (08:44)
[2020-04-16] MEDS ORDERED: TOPROL XL50 MG PO (08:44)
[2020-04-16] MEDS ORDERED: IMDUR 60 MG TAB60 M1 PO (08:44)
[2020-04-16 12:38] LABS: HEMATOCRIT 26.1 % (37.0-47.0); HEMOGLOBIN 8.1 gm/dL (12.0-15.0); MCH 22.3 pg (26.0-34.0); MCHC 31.1 g/dL (28.0-37.0); MCV 71.7 fL (80.0-100.0); MPV 8.6 fl. (7.2-11.1); RBC 3.65 mil/uL (4.20-5.00); RDW-CV 20.5 % (10.5-14.5); WBC 18.6 thou/uL (4.0-11.0)
[2020-04-16 12:50] LABS: CALCIUM 8.2 mg/dL (8.5-10.1); CREATININE 1.2 mg/dL (0.6-1.3); POTASSIUM 3.1 mmol/L (3.5-5.1)
== END 2020-04-16 15:00 | disposition hospice, home (50) | DRG 177 ==
LOC: M.ERS 14:42 → M.2W 16:04 → M.TBA-ER 16:04 → M.2W 19:58 → M.ORTHSURG 04-15 18:54
PROVIDERS: Emergency Medicine Emergency Medical Services; Internal Medicine; Internal Medicine Critical Care Medicine; Internal Medicine Gastroenterology; Registered Nurse; ADMIT Family Medicine; ATTEND Family Medicine
PROC: 0DJ08ZZ Inspection of Upper Intestinal Tract, Via Natural or Artificial Opening Endoscopic (ICD-10-PCS; principal; 2020-04-12)
PROC: 0DJD8ZZ Inspection of Lower Intestinal Tract, Via Natural or Artificial Opening Endoscopic (ICD-10-PCS; 2020-04-14)
DX: J69.0 Pneumonitis due to inhalation of food and vomit (principal); I21.A1 Myocardial infarction type 2; I50.43 Acute on chronic combined systolic (congestive) and diastolic (congestive) heart failure; G93.41 Metabolic encephalopathy; J96.00 Acute respiratory failure, unspecified whether with hypoxia or hypercapnia; N17.9 Acute kidney failure, unspecified; I13.0 Hypertensive heart and chronic kidney disease with heart failure and stage 1 through stage 4 chronic kidney disease, or unspecified chronic kidney disease; R53.81 Other malaise; F32.9 Major depressive disorder, single episode, unspecified; K21.9 Gastro-esophageal reflux disease without esophagitis; D32.9 Benign neoplasm of meninges, unspecified; D50.9 Iron deficiency anemia, unspecified; G30.9 Alzheimer's disease, unspecified; E11.65 Type 2 diabetes mellitus with hyperglycemia; G47.00 Insomnia, unspecified; D12.2 Benign neoplasm of ascending colon; N18.32 Chronic kidney disease, stage 3b; E11.40 Type 2 diabetes mellitus with diabetic neuropathy, unspecified; E78.5 Hyperlipidemia, unspecified; F02.80 Dementia in other diseases classified elsewhere, unspecified severity, without behavioral disturbance, psychotic disturbance, mood disturbance, and anxiety; I95.1 Orthostatic hypotension; K44.9 Diaphragmatic hernia without obstruction or gangrene; K64.4 Residual hemorrhoidal skin tags; K57.30 Diverticulosis of large intestine without perforation or abscess without bleeding; E83.42 Hypomagnesemia; E86.0 Dehydration; D72.829 Elevated white blood cell count, unspecified; K59.00 Constipation, unspecified; I27.20 Pulmonary hypertension, unspecified; Z20.828 Contact with and (suspected) exposure to other viral communicable diseases; Z66 Do not resuscitate; Z79.84 Long term (current) use of oral hypoglycemic drugs; Z79.01 Long term (current) use of anticoagulants; Z79.899 Other long term (current) drug therapy